=== PATIENT | male | born 1990 | race Caucasian/White ===

== ENCOUNTER 2016-03-21 14:07 | Emergency (ER) | payer BC ==
--- NOTE | 2016-03-21 14:15 | EDPHY ---
H & P Time Seen by Provider: 03/21/16 14:11 HPI/ROS: CHIEF COMPLAINT: Right shoulder dislocation HISTORY OF PRESENT ILLNESS: Patient has had 2 shoulder dislocations on the right side previously, both at [facility], the first one 2 years ago and 1 about a year ago. Today he was skiing at the [place] area when he lost his balance and started when windmilling his arms causing his right shoulder to dislocate. He did not fall on it. He was brought in by EMS and had received 100 mcg IV fentanyl. Right shoulder pain started immediately after this when windmilling his arms trying to catch himself, does not radiate, mild at rest and severe with movement. Feels exactly like previous dislocation. REVIEW OF SYSTEMS: Eye: no change in vision ENT: Recent URI see pulmonary Cardiac: no chest pain or syncope Pulmonary: Recent cough and congestion and postnasal drip, improving. Abdomen: no vomiting, diarrhea, abdominal pain Musculoskeletal: no back pain Skin: no rash Neuro: no headache Constitutional: no fever : no urinary symptoms A comprehensive 10 point review of systems is otherwise negative aside from elements mentioned in the history of present illness. PAST MEDICAL HISTORY: Previous shoulder dislocations Social history: [place] father is a physician in the [facility] [place], just finished Zithromax prescribed by his father. General Appearance: Alert and conversant, cooperative. Eyes: No scleral icterus. ENT, Mouth: Normal mucous membranes. Respiratory: Normal respiratory effort, breath sounds equal, lungs are clear to auscultation. Cardiovascular: Regular rate and rhythm. Gastrointestinal: Abdomen is soft and non tender. Neurological: Alert and oriented x3. Normally conversant. Face symmetric, normal movement and sensation in all extremities. Normal sensation in axillary nerve distribution in both arms. Skin: Warm and dry, no rashes. Musculoskeletal: Right shoulder AC step-off with limited rotation. No spinal tenderness. No other extremity tenderness. Normal right radial pulse, motor, sensory. Psychiatric: Not agitated. Emergency Department course/MDM: Procedure: Dislocation reduction. Indication: Dislocation of the right glenohumeral joint. Risks, benefits, alternatives discussed with the patient including but not limited to fracture, nerve injury, and consent obtained. The shoulder was reduced with my standard scapular manipulation technique, without complications. Post reduction the patient's neurovascular exam is normal. Post reduction x-ray demonstrates reduction of the joint to the anatomic position. The procedure was performed by myself. Patient is referred to Orthopedics, placed in a sling, warned follow-up is mandatory or he will be almost guaranteed to have recurrent dislocations. Constitutional: Initial Vital Signs Temperature (C) 36.6 C 03/21/16 14:17 Heart Rate 90 03/21/16 14:17 Respiratory Rate 16 03/21/16 14:17 Blood Pressure 143/81 H 03/21/16 14:17 O2 Sat (%) 99 03/21/16 14:17 O2 Delivery Mode Room Air Medical Decision Making - Diagnostics Imaging: Postreduction right shoulder x-ray viewed independently by myself is normal, good reduction. Differential Diagnosis: Differential for right shoulder injury considered including but not limited to AC separation, clavicle fracture, humeral fracture, shoulder joint dislocation. Departure - Departure Disposition: Home, Routine, Self-Care Clinical Impression: Shoulder dislocation Condition: Good Instructions: Shoulder Dislocation (ED) Additional Instructions: Limited use of right arm. No skiing. Please do not lift it over your head until evaluated by Orthopedics. Referrals: See Hernandez MD [Medical Doctor] - 5-7 days, call for appt. (Follow-up with this orthopedic surgeon in the next week for definitive orthopedic evaluation and treatment.)
[2016-03-21 14:20] VITALS: RESP 16; O2SAT 99
[2016-03-21 15:29] VITALS: BP 133/81; PULSE 82; TEMP 98.1
--- NOTE | 2016-03-21 15:46 | DX ---
Right shoulder series 2 views 1429 hours. History: Post reduction of right shoulder dislocation. Findings: The right humeral head is in good position within the glenoid fossa postreduction. There is suspicion of Hill-Sachs deformity along the superolateral margin of the humeral head. The AC joint i s normal in appearance. Soft tissues are unremarkable. Impression: 1. Good position right humeral head postreduction. 2. Possible Hill-Sachs deformity superolateral margin right humeral head.
== END 2016-03-21 15:28 | disposition home or self-care (01) ==
LOC: EDUNIT#
PROC: 0RSJXZZ Reposition Right Shoulder Joint, External Approach (ICD-10-PCS; principal; 2016-03-21)
DX: S43.004A Unspecified dislocation of right shoulder joint, initial encounter (principal); X58.XXXA Exposure to other specified factors, initial encounter; Y99.8 Other external cause status; Y93.23 Activity, snow (alpine) (downhill) skiing, snowboarding, sledding, tobogganing and snow tubing
CPT/HCPCS: A4565; L3980